=== PATIENT | female | born 1930 | race Caucasian/White ===

== ENCOUNTER 2017-11-06 07:42 | Inpatient (IN) | payer MEDICARE ==
[~2017-11-06] VITALS: Ht 165.1 cm; Wt 50.0 kg
--- NOTE | 2017-11-06 07:46 | NUR ---
PATY FROM HOME DT [facility]. PER REPORT PATIENT WAS FOUND ON THE GROUND BY HER NEIGHBOR THIS MORNING. PATIENT LIVES ALONE. PATIENT IS C/O LEFT SHOULDER, BACK AND NECK PAIN. NO KO REPORTED. BS IN FIELD 165. PATIENT IS AWAKE AND ALERT, NOT IN DISTRESS. SKIN IS WARM TO TOUCH AND NON DIAPHORETIC. PATIENT IS AFEBRILE. VSS. AWAITING FOR MD EVALUATION.
[2017-11-06] MEDS ORDERED: IV NS 0.9% 500 ML BAG IV ONE (08:00)
--- NOTE | 2017-11-06 08:05 | NUR ---
NEW IV STARTED ON LFA, 20G. BLOOD DRAWN AND SENT TO LAB.
--- NOTE | 2017-11-06 08:11 | NUR ---
CAD SPECIALIST AT BEDSIDE.
--- NOTE | 2017-11-06 08:17 | NUR ---
CUSTOMS ENTRY WRITER AT BEDSIDE.
[2017-11-06 08:18] LABS: BASOPHILS # (AUTO) 0.1 /CMM (0.0-0.2); BASOPHILS % (AUTO) 0.4 % (0.0-2.0); HEMATOCRIT 38 % (33-45); HEMOGLOBIN 12.2 g/dL (11.5-14.8); LYMPHOCYTES # (AUTO) 0.9 /CMM (0.8-4.8); LYMPHOCYTES % (AUTO) 4.7 % (20.0-44.0); MEAN CORPUSCULAR HEMOGLOBIN 28 PG (26.0-33.0); MEAN CORPUSCULAR HGB CONC 32 g/dl (31.0-36.0); MEAN CORPUSCULAR VOLUME 87 fL (82-100); MONOCYTES % (AUTO) 5.1 % (2.0-12.0); NEUTROPHILS # (AUTO) 17.5 /CMM (1.8-8.9); NEUTROPHILS % (AUTO) 89.8 % (43.0-81.0); PLATELET COUNT (AUTO) 234 /CMM (150-450); RDW COEFFICIENT OF VARIATION 15.6 (11.5-15.0); RED BLOOD CELL COUNT(AUTO) 4.42 MIL/uL (4.0-5.2); WHITE BLOOD COUNT (AUTO) 19.5 K/uL (4.3-11.0)
[2017-11-06 08:19] LABS: CALCIUM, SERUM 8.9 mg/dL (8.5-10.1); CARBON DIOXIDE 19 mmol/L (21-32); CHLORIDE 102 mmol/L (98-107); CREATININE 1.8 mg/dL (0.6-1.3); GLUCOSE 184 mg/dL (74-106); POTASSIUM 3.7 mmol/L (3.5-5.1); SODIUM SERUM 133 mmol/L (136-145); UREA NITROGEN, BLOOD 46 mg/dL (7-18)
[2017-11-06 08:24] LABS: ALANINE AMINOTRANSFERASE 17 U/L (12-78); ALBUMIN 2.4 g/dL (3.4-5.0); ALKALINE PHOSPHATASE 98 U/L (46-116); ASPARTATE AMINOTRANSFERASE 19 U/L (15-37); BILIRUBIN,DIRECT 0.2 mg/dL (0.0-0.2); BILIRUBIN,TOTAL 0.5 mg/dL (0.2-1.0); TOTAL PROTEIN, SERUM 7.1 g/dL (6.4-8.2)
[2017-11-06 08:25] LABS: INR 1.12 (0.87-1.13)
[2017-11-06 08:27] LABS: TROPONIN I < 0.017 ng/mL (0.00-0.056)
[2017-11-06] MEDS ORDERED: IV NS 0.9% 1,000 ML BAG IV ONE (08:30)
[2017-11-06] MEDS ORDERED: LEVOFLOXACIN 750 MG /D5W 150ML 150 ML IV ONE ×2 (08:30→08:33)
--- NOTE | 2017-11-06 08:31 | NUR ---
PATIENT IS BACK FROM [place]
--- NOTE | 2017-11-06 08:47 | NUR ---
BLOOD CULTURE COLLECTED AND SENT TO LAB. AT [facility] STARTED
[2017-11-06] MEDS ORDERED: ATOR20TA PO (08:50)
[2017-11-06] MEDS ORDERED: METF500T6 PO (08:50)
[2017-11-06] MEDS ORDERED: SITA50TA PO (08:50)
[2017-11-06] MEDS ORDERED: APIX2.5T PO (08:50)
[2017-11-06] MEDS ORDERED: ALLO100T PO (08:50)
--- NOTE | 2017-11-06 09:10 | NUR ---
CAPO OROPEZA FOR ADMISSION
--- NOTE | 2017-11-06 09:15 | NUR ---
PAGED DR. THORNE FO DOC TO DOC
--- NOTE | 2017-11-06 10:30 | NUR ---
PATIENT TRANSPORTED TO TELE. S
[2017-11-06] MEDS ORDERED: MAG HYDROX/AL HYDROX/SIMETH 30 ML UDC PO PRN (11:00)
[2017-11-06] MEDS ORDERED: HYDROCODONE/APAP 5/325MG 1 EACH TABLET PO PRN (11:00)
[2017-11-06] MEDS ORDERED: MAGNESIUM HYDROXIDE 30 ML UDC PO PRN (11:00)
[2017-11-06] MEDS ORDERED: TEMAZEPAM 15 MG CAPSULE PO PRN (11:00)
[2017-11-06 11:30] VITALS: BP 127/66
[2017-11-06] MEDS ORDERED: DEXTROSE 50%-WATER 50 ML DISP.SYRIN IV PRN (11:30)
[2017-11-06] MEDS: BLOOD SUGAR DIAGNOSTIC 1 EACH STRIP IN SCH ×3 (11:56→21:45)
[2017-11-06 12:00] VITALS: BP 127/66
[2017-11-06] MEDS ORDERED: LEVOFLOXACIN 250 MG /D5W 50 ML 250 MG in PREMIX 1 EA IV SCH (12:00)
--- NOTE | 2017-11-06 12:00 | NUR ---
MORTGAGE ADVISOR INITIAL NOTES RECEIVED PATIENT FROM ER VIA MARGARET, REPORT GIVEN FROM BILINGUAL KINDERGARTEN TEACHER ZOILA, PATIENT IS AOX3, WEAKNESS AND PAIN IN L SHOULDER NOTED, WOUND PICTURES TAKEN AND PLACED IN CHART, BELONGINGS LIST CHECKED, ON ROOM AIR NO DISTRESS NOTED, WEARS GLASSES, FROM HOME USUALLY AMBULATORY WITH WALKER, IN DIAPER, IV L FA 20G CLEAN AND PATENT, HAD FALL 3 DAYS AGO, SACRAL WOUND POSSIBLY FROM FALL. ALL QUESTIONS ANSWERED, ALL NEEDS ADDRESSED, AWAITING ADMITTING ORDERS.
[2017-11-06] MEDS: IV NS 0.9% 1,000 ML IV PRN ×2 (12:05→21:55)
[2017-11-06] MEDS ORDERED: Z GUARD REMEDY 2 OZ OINT TP PRN (14:30)
[2017-11-06 16:00] VITALS: BP 115/52
[2017-11-06 16:01] VITALS: BP 115/52
[2017-11-06 16:51] LABS: APPEARANCE,URINE SL CLOUDY (CLEAR); BILIRUBIN,URINE NEGATIVE (NEGATIVE); BLOOD, URINE 3+ Ery/uL (NEGATIVE); COLOR,URINE YELLOW (YELLOW); KETONES,URINE NEGATIVE (NEGATIVE); LEUKOCYTE ESTERASE ,URINE 3+ (NEGATIVE); NITRITE, URINE POSITIVE (NEGATIVE); PROTEIN,URINE 1+ mg/dl (NEGATIVE); UGLUCOSE NEGATIVE (NEGATIVE); UROBILINOGEN,URINE 0.2 EU/dL (0.2)
[2017-11-06 16:58] LABS: BACTERIA,URINE Many /HPF (None Seen); SQUAMOUS EPITHELIAL CELL,UR Few /HPF (None Seen); WBC,URINE 51-80 /HPF (0-3)
[2017-11-06] MEDS ORDERED: APIXABAN 2.5 MG TABLET PO ONE (17:00)
--- NOTE | 2017-11-06 18:52 | NUR ---
METAL FLOORING INSTALLER NOTES PATIENT RESTING IN BED, NO SIGNS OF DISTRESS, ALL NEEDS MET, FAMILY AT BEDSIDE.
[2017-11-06 20:00] VITALS: BP 116/58
[2017-11-06] MEDS ORDERED: ATORVASTATIN 10 MG TABLET PO SCH (22:00)
--- NOTE | 2017-11-06 22:00 | NUR ---
RN NOTES: PATIENT REFUSING TO HAVE BLOOD SUGAR CHECKED. PATIENT STATES "I DONT CHECK MY BLOOD SUGAR AT HOME, WHY SHOULD I DO IT HERE." ATTEMPTED TO EDUCATE PATIENT REGARDING NEED FOR BLOOD SUGAR TO BE CHECKED, PATIENT VERBALIZES UNDERSTANDING, BUT STILL STRONGLY REFUSES. NO S/S OF HYPOGLYCEMIA OR HYPERGLYCEMIA AT THIS TIME. OFFERED JUICE AND SNACK AT BEDSIDE, BUT PATIENT REFUSES. WILL CONTINUE CLOSE MONITORING
[2017-11-07] VITALS: BP 115/61
--- NOTE | 2017-11-07 00:30 | NUR ---
RN NOTES PATIENT WITH C/O SOB WITH GENERAL MALAISE. PLACED ON O2 VIA NC @ 2LPM, PATIENT STATES SHE HAS IMPROVEMENT IN BREATHING WITH O2, SPO2 WNL. WILL CONTINUE TO CLOSELY MONITOR
[2017-11-07 04:00] VITALS: BP 105/57
[2017-11-07 06:37] LABS: EOSINOPHILS % (AUTO) 0.2 % (0.0-6.0); HEMATOCRIT 32 % (33-45); HEMOGLOBIN 10.4 g/dL (11.5-14.8); LYMPHOCYTES # (AUTO) 0.7 /CMM (0.8-4.8); LYMPHOCYTES % (AUTO) 7.7 % (20.0-44.0); MEAN CORPUSCULAR HEMOGLOBIN 28 PG (26.0-33.0); MEAN CORPUSCULAR HGB CONC 33 g/dl (31.0-36.0); MEAN CORPUSCULAR VOLUME 87 fL (82-100); MONOCYTES # (AUTO) 0.7 /CMM (0.1-1.30); NEUTROPHILS # (AUTO) 8.2 /CMM (1.8-8.9); NEUTROPHILS % (AUTO) 85.1 % (43.0-81.0); PLATELET COUNT (AUTO) 198 /CMM (150-450); RDW COEFFICIENT OF VARIATION 15.9 (11.5-15.0); RED BLOOD CELL COUNT(AUTO) 3.66 MIL/uL (4.0-5.2); WHITE BLOOD COUNT (AUTO) 9.6 K/uL (4.3-11.0)
[2017-11-07 06:48] LABS: CALCIUM, SERUM 7.5 mg/dL (8.5-10.1); CARBON DIOXIDE 20 mmol/L (21-32); CHLORIDE 108 mmol/L (98-107); CREATININE 1.2 mg/dL (0.6-1.3); GLUCOSE 131 mg/dL (74-106); POTASSIUM 3.5 mmol/L (3.5-5.1); SODIUM SERUM 137 mmol/L (136-145); UREA NITROGEN, BLOOD 30 mg/dL (7-18)
[2017-11-07 06:55] LABS: CHOLESTEROL 84 mg/dL (<200); HDL CHOLESTEROL 25 mg/dL (40-60); LDL 49 mg/dL (0-99); THYROID STIMULATING HORMONE 2.691 uIU/mL (0.358-3.74); TRIGLYCERIDES 63 mg/dL (30-150)
[2017-11-07 07:00] LABS: MAGNESIUM 1.2 mg/dL (1.8-2.4)
--- NOTE | 2017-11-07 07:00 | NUR ---
RN CLOSING NOTES PATIENT RESTING COMFORTABLY IN BED. NO ACUTE CHANGES THROUGHOUT THE SHIFT. WILL ENDORSE THE PATIENT TO THE AM SHIFT NURSE FOR CONTINUITY OF CARE
--- NOTE | 2017-11-07 07:30 | NUR ---
RN NOTE: PATIENT RECEIVED ALERT AWAKE ORIENTED X 2, WITH PERIODS OF FORGETFULNESS. ON 2LPM O2 VIA NC. DENIES BREATHING DIFFICULTY NOTED. DENIES PAIN & DISCOMFORT. ON TELE MONITOR SINUS RHYTHM WITH V-PACING. IV CATH INTACT, RUNNING WITH IV FLUIDS ORDERED BY MD. WAITING FOR WOUND CONSULT. SAFETY MEASURES OBSERVED. CALL LIGHT WITHIN REACH. WILL CONTINUE TO MONITOR.
[2017-11-07 08:00] VITALS: BP 150/68
[2017-11-07] MEDS: ALLOPURINOL 100 MG TABLET PO SCH (08:09)
[2017-11-07] MEDS: IV NS 0.9% 1,000 ML IV PRN ×3 (08:09→21:01)
[2017-11-07] MEDS: BLOOD SUGAR DIAGNOSTIC 1 EACH STRIP IN SCH ×4 (08:09→22:02)
[2017-11-07] MEDS ORDERED: APIXABAN 2.5 MG TABLET PO SCH (09:00)
[2017-11-07] MEDS: Magnesium 1GM/D5W 100ML PREMIX 100 ML IV SCH ×3 (09:02→12:07)
[2017-11-07 09:33] LABS: ALBUMIN 1.7 g/dL (3.4-5.0); BILIRUBIN,DIRECT 0.1 mg/dL (0.0-0.2); BILIRUBIN,TOTAL 0.3 mg/dL (0.2-1.0); TOTAL PROTEIN, SERUM 5.7 g/dL (6.4-8.2); TROPONIN I 0.01 ng/mL (0.00-0.056)
[2017-11-07] MEDS ORDERED: MINERAL OIL/PETROLATUM,WHITE 120 GM JAR TP PRN (10:00)
[2017-11-07] MEDS ORDERED: HYDROGEL DRESSING 90 GM TUBE TP PRN (10:00)
--- NOTE | 2017-11-07 10:04 | NUR ---
WOUND CARE CONSULT: PT PRESENTS WITH UNSTAGEABLE ULCERS TO SACRUM AND BILATERAL BUTTOCKS, PRESENT ON ADMISSION. ALL WOUND CARE AND SKIN PROTECTION RECOMMENDATIONS DISCUSSED WITH NURSING STAFF. DIETARY CONSULT AND SOCIAL SERVICE CONSULTS MADE. PT TO BE PLACED ON GAUTAM ISOFLEX LOW AIRLOSS BED. RECOMMEND SURGICAL CONSULT. WILL SEE PRN. CURRENT ELLIOTT SCORE IS 17. PT IS INCONTINENT. MD IN AGREEMENT WITH PLAN OF CARE. Addendum: 11/07/17 at 1006 by DUSTIN MAHMOOD WNDNU Amended: Links added.
[2017-11-07 12:00] VITALS: BP 124/60
[2017-11-07] MEDS: HYDROGEL DRESSING 90 GM TUBE TP SCH (12:06)
[2017-11-07] MEDS: INSULIN REGULAR, HUMAN 100 UNIT/ML 3 ML VIAL SQ PRN ×2 (12:46→17:49)
[2017-11-07] MEDS: LEVOFLOXACIN 250 MG /D5W 50 ML 250 MG in PREMIX 1 EA IV SCH (13:15)
[2017-11-07 16:00] VITALS: BP 115/58
[2017-11-07 20:00] VITALS: BP 118/55
[2017-11-07] MEDS: ACETAMINOPHEN 325 MG TABLET PO PRN (21:54)
[2017-11-08] VITALS (8 sets, daily range): BP systolic 99–149; BP diastolic 50–71
[2017-11-08] MEDS: IV NS 0.9% 1,000 ML IV PRN (04:50)
[2017-11-08 06:09] LABS: EOSINOPHILS % (AUTO) 0.8 % (0.0-6.0); HEMATOCRIT 30 % (33-45); HEMOGLOBIN 9.9 g/dL (11.5-14.8); LYMPHOCYTES # (AUTO) 0.9 /CMM (0.8-4.8); LYMPHOCYTES % (AUTO) 11.3 % (20.0-44.0); MEAN CORPUSCULAR HEMOGLOBIN 28 PG (26.0-33.0); MEAN CORPUSCULAR HGB CONC 33 g/dl (31.0-36.0); MEAN CORPUSCULAR VOLUME 86 fL (82-100); MONOCYTES # (AUTO) 0.7 /CMM (0.1-1.30); MONOCYTES % (AUTO) 8.3 % (2.0-12.0); NEUTROPHILS # (AUTO) 6.4 /CMM (1.8-8.9); NEUTROPHILS % (AUTO) 79.6 % (43.0-81.0); PLATELET COUNT (AUTO) 192 /CMM (150-450); RDW COEFFICIENT OF VARIATION 15.4 (11.5-15.0); RED BLOOD CELL COUNT(AUTO) 3.51 MIL/uL (4.0-5.2); WHITE BLOOD COUNT (AUTO) 8.1 K/uL (4.3-11.0)
[2017-11-08 06:33] LABS: ALANINE AMINOTRANSFERASE 21 U/L (12-78); ALBUMIN 1.5 g/dL (3.4-5.0); ALKALINE PHOSPHATASE 59 U/L (46-116); ASPARTATE AMINOTRANSFERASE 23 U/L (15-37); BILIRUBIN,TOTAL 0.2 mg/dL (0.2-1.0); CALCIUM, SERUM 6.9 mg/dL (8.5-10.1); CARBON DIOXIDE 19 mmol/L (21-32); CHLORIDE 108 mmol/L (98-107); GLUCOSE 123 mg/dL (74-106); MAGNESIUM 1.6 mg/dL (1.8-2.4); PHOSPHORUS 2.4 mg/dL (2.5-4.9); SODIUM SERUM 138 mmol/L (136-145); TOTAL PROTEIN, SERUM 5.1 g/dL (6.4-8.2); UREA NITROGEN, BLOOD 20 mg/dL (7-18)
--- NOTE | 2017-11-08 07:35 | NUR ---
FOUNDRY SUPERINTENDANT OPENING NOTE PATIENT RECEIVED ALERT AWAKE ORIENTED X 2, WITH PERIODS OF FORGETFULNESS. ON 2LPM O2 VIA NC. NO BREATHING DIFFICULTY NOTED. DENIES PAIN & DISCOMFORT. ON TELE MONITOR SINUS RHYTHM 70. IV LFA#20 INTACT AND PATENT WITH IVF 150ML/HR.HAS MARIE CATH DRAINING CLEAR YELLOW URINE. SAFETY MEASURES MAINTAINED.BED IS LOCKED AND IN LOW POSITION. CALL LIGHT WITHIN REACH. WILL CONTINUE TO MONITOR.
[2017-11-08] MEDS: BLOOD SUGAR DIAGNOSTIC 1 EACH STRIP IN SCH ×4 (08:09→23:24)
[2017-11-08] MEDS: ALLOPURINOL 100 MG TABLET PO SCH (08:14)
[2017-11-08] MEDS: HYDROGEL DRESSING 90 GM TUBE TP SCH (08:18)
[2017-11-08] MEDS: NEUTRA PHOS 1 POWD.PACKET PO SCH ×2 (10:01→17:11)
[2017-11-08] MEDS: Magnesium 1GM/D5W 100ML PREMIX 100 ML IV SCH ×2 (10:01→11:51)
[2017-11-08] MEDS: POTASSIUM CHLORIDE 20 MEQ TAB.PRT.SR PO SCH ×3 (10:01→13:03)
[2017-11-08] MEDS: ENOXAPARIN SODIUM 40 MG/0.4 ML DISP.SYRIN SQ SCH (11:52)
--- NOTE | 2017-11-08 12:54 | NUR ---
Social service consult requested by Dr. Oliveros for stage 4 pressure ulcer. Pt. resides at home. Pt. is a 87 year old female who was admitted to [facility] for ground level fall at her home three days ago prior to admission and for pressure ulcers. Pt. is alert and oriented x 3. Pt. is forgetful at times. Pt. lives alone and has friends who check up on the pt. Pt's friends are Asaf Wilkes and Mykel . Pt. resides alone and will need assisted placement upon discharge. Per case resource manager Yajaira pt. has been accepted to [facility] located at [address] [place] [address] in [place]. [place] . Pt. has agreed to go to SNF as well for rehabilitation. No other social service needs are required at this time. SW is available, if needed.
[2017-11-08] MEDS: LEVOFLOXACIN 250 MG /D5W 50 ML 250 MG in PREMIX 1 EA IV SCH (13:03)
[2017-11-08] MEDS: INSULIN REGULAR, HUMAN 100 UNIT/ML 3 ML VIAL SQ PRN ×3 (13:06→23:36)
[2017-11-08] MEDS: ENSURE ENLIVE CHOC 237 ML CAN PO SCH ×2 (14:06→17:11)
[2017-11-08] MEDS ORDERED: LIDOCAINE 1%-EPI 1:100,000 20 ML VIAL TP ONE (15:00)
--- NOTE | 2017-11-08 15:00 | NUR ---
COUNTER SALES PERSON NOTES SEEN BY DR KEITA MADE AWARE ABOUT THE ALL ABNORMAL LABS ,SHE WANT TO KNOW ABOUT THE PT YESTERDAY.CALL MADE TO REHAB .TOLD THAT SHE NEED ASSISTANCE WITH BED MOBILITY AND TRANSFER AND UNABLE TO WALK YESTERDAY. MADE AWARE.WILL FOLLOW UP WITH PT TODAY.
[2017-11-08] MEDS ORDERED: SILVER NITRATE APPLICATOR 1 EA BOX TP ONE (15:30)
[2017-11-08] MEDS: SOD FERRIC GLUC 125 MG in IV NS 0.9% 100 ML IV SCH (15:48)
--- NOTE | 2017-11-08 19:00 | NUR ---
JAVA GRAILS DEVELOPER SHIFT END NOTE PATIENT ALERT AWAKE ORIENTED X 2, WITH PERIODS OF FORGETFULNESS. ON 2LPM O2 VIA NC. NO BREATHING DIFFICULTY NOTED. DENIES PAIN & DISCOMFORT. ON TELE MONITOR SINUS RHYTHM 76. IV LFA#20 INTACT AND PATENT WITH IVF 50ML/HR.HAS MARIE CATH DRAINING CLEAR YELLOW URINE. SAFETY MEASURES MAINTAINED.BED IS LOCKED AND IN LOW POSITION. CALL LIGHT WITHIN REACH.NEED TO COLLECT STOOL FOR OB.FIRST LEVEL MATTRESS ORDERED ,SPOKE TO [facility] [employer] THEY TOLD THAT ORDER MAY .PLACED NEW ORDER.ENDORSED TO PM NURSE FOR TIMBO.
[2017-11-09] VITALS (7 sets, daily range): BP systolic 100–130; BP diastolic 53–70
[2017-11-09] MEDS: IV NS 0.9% 1,000 ML IV PRN (01:02)
[2017-11-09 06:53] LABS: ALANINE AMINOTRANSFERASE 20 U/L (12-78); ALBUMIN 1.6 g/dL (3.4-5.0); ALKALINE PHOSPHATASE 63 U/L (46-116); ASPARTATE AMINOTRANSFERASE 19 U/L (15-37); BILIRUBIN,TOTAL 0.2 mg/dL (0.2-1.0); CALCIUM, SERUM 7.3 mg/dL (8.5-10.1); CARBON DIOXIDE 19 mmol/L (21-32); CHLORIDE 109 mmol/L (98-107); GLUCOSE 193 mg/dL (74-106); MAGNESIUM 1.5 mg/dL (1.8-2.4); PHOSPHORUS 2.3 mg/dL (2.5-4.9); POTASSIUM 4.1 mmol/L (3.5-5.1); SODIUM SERUM 139 mmol/L (136-145); TOTAL PROTEIN, SERUM 5.3 g/dL (6.4-8.2); UREA NITROGEN, BLOOD 21 mg/dL (7-18)
--- NOTE | 2017-11-09 06:53 | NUR ---
RN NOTE NO ACUTE CHANGES ON MY SHIFT, PATIENT RESTED WELL AT NIGHT, NO DISTRESS NOTED, ALL SAFETY MEASURES TAKEN, WILL ENDORSE TO AM SHIFT FOR TIMBO
[2017-11-09] MEDS: BLOOD SUGAR DIAGNOSTIC 1 EACH STRIP IN SCH ×4 (07:55→22:09)
--- NOTE | 2017-11-09 07:55 | NUR ---
RN NOTE RECEIVED PATIENT IN BED AWAKE WATCHING T.V. ALERT AND ORIENTED X 3, SHE IS ABLE TO VERBALIZE NEEDS AND MAKE THINGS KNOWN. BREATHING EVEN AND UNLABORED WITH NO DISTRESS NOTED. ON CONTINUOUS O2 2L VIA NC. LEFT FA INTACT AND PATEN. NO S/SX OF INFILTRATION OR INFECTION. F/C INTACT AND PATENT WITH ADEQUATE FLOW OF URINE. ALL SAFETY MEASURES DONE. BED LOW AND LOCKED POSITION. PLACED CALL LIGHT WITHIN REACH. WILL CONTINUE TO MONITOR
[2017-11-09] MEDS: INSULIN REGULAR, HUMAN 100 UNIT/ML 3 ML VIAL SQ PRN ×4 (07:57→22:11)
[2017-11-09 08:12] LABS: BASOPHILS % (AUTO) 0.1 % (0.0-2.0); EOSINOPHILS % (AUTO) 0.9 % (0.0-6.0); HEMATOCRIT 32 % (33-45); HEMOGLOBIN 10.9 g/dL (11.5-14.8); LYMPHOCYTES # (AUTO) 1.2 /CMM (0.8-4.8); LYMPHOCYTES % (AUTO) 13.4 % (20.0-44.0); MEAN CORPUSCULAR HEMOGLOBIN 29 PG (26.0-33.0); MEAN CORPUSCULAR HGB CONC 34 g/dl (31.0-36.0); MEAN CORPUSCULAR VOLUME 85 fL (82-100); MONOCYTES # (AUTO) 0.8 /CMM (0.1-1.30); MONOCYTES % (AUTO) 8.9 % (2.0-12.0); NEUTROPHILS % (AUTO) 76.7 % (43.0-81.0); PLATELET COUNT (AUTO) 187 /CMM (150-450); RED BLOOD CELL COUNT(AUTO) 3.76 MIL/uL (4.0-5.2); WHITE BLOOD COUNT (AUTO) 9.1 K/uL (4.3-11.0)
[2017-11-09 08:36] LABS: OCCULT BLOOD STOOL NEGATIVE (NEGATIVE)
[2017-11-09] MEDS: ALLOPURINOL 100 MG TABLET PO SCH (08:45)
[2017-11-09] MEDS: ENOXAPARIN SODIUM 40 MG/0.4 ML DISP.SYRIN SQ SCH (08:50)
[2017-11-09] MEDS: HYDROGEL DRESSING 90 GM TUBE TP SCH (08:52)
[2017-11-09] MEDS: ENSURE ENLIVE CHOC 237 ML CAN PO SCH ×3 (08:52→16:54)
[2017-11-09] MEDS: Magnesium 1GM/D5W 100ML PREMIX 100 ML IV SCH ×2 (10:08→11:11)
[2017-11-09] MEDS ORDERED: FERR325T28 PO (10:19)
[2017-11-09] MEDS ORDERED: LACT-54 PO (10:19)
[2017-11-09] MEDS ORDERED: MAGN400T6 PO (10:19)
[2017-11-09] MEDS ORDERED: MULT1TAB73 PO (10:19)
[2017-11-09] MEDS ORDERED: ASCO500C16 PO (10:19)
[2017-11-09] MEDS ORDERED: Hydrogel Dressing TP (10:19)
[2017-11-09] MEDS ORDERED: FOLI1TAB16 PO (10:19)
[2017-11-09] MEDS: LEVOFLOXACIN 250 MG /D5W 50 ML 250 MG in PREMIX 1 EA IV SCH (12:20)
[2017-11-09] MEDS ORDERED: NEUTRA PHOS 1 POWD.PACKET PO ONE (13:00)
[2017-11-09] MEDS: SOD FERRIC GLUC 125 MG in IV NS 0.9% 100 ML IV SCH (15:37)
--- NOTE | 2017-11-09 18:00 | NUR ---
RN NOTE AMBULANCE WAS HER TO TRANSFER PATIENT TO [facility]. PATIENT AND NIECE DECIDED NOT TO HAVE PATIENT TRANSFERRED DUE TO PATIENT NOT RECEIVING WOUND DEBRIDEMENT. HEAD OF ENGLISH SAHRA CHILDS STATED IN HER NOTES THAT PATIENT REFUSED DEBRIDEMENT. NIECE AND PATIENT WOULD LIKE WOUND DEBRIDEMENT TO BE DONE TOMORROW AND DISCHARGED TO FACILITY. REPLAYED MESSAGE TO SENIOR OPERATIONS ANALYST JOSEFA REGARDING SITUATION AND MADE AWARE. RELAYED MESSAGE TO MD DR KEITA. CHARGE NURSE WAS NOTIFIED. WILL ENDORSE TO NEXT SHIFT TO ENDORSE TO AM SHIFT TOMORROW.
--- NOTE | 2017-11-09 21:50 | NUR ---
RN NOTES RECEIVED PATIENT AWAKE IN BED WITH FAMILY AT BEDSIDE. BREATHING EVEN AND UNLABORED. O2 AT 2LPM VIA NASAL CANNULA TOLERATING WELL. ALERT AND ORIENTED. ABLE TO VERBALIZE NEEDS. NO COMPLAINT OF PAIN OF THIS TIME. TRANSFERRED TO 313-1 ROBBIN HUERTA IN STABLE CONDITION. ENDORSEMENT GIVEN TO ROBBIN HUERTA RN.
--- NOTE | 2017-11-09 21:57 | NUR ---
MS RN OPENING NOTES RECEIVE REPORT FROM COLETTE HAT LINING PASTER TO 113-2 RECEIVE AT 2150 ALERT AWAKE ORIENTED X 2-3, WITH PERIODS OF FORGETFULNESS. ON 2LPM O2 VIA NC 98%.DENIES PAIN & DISCOMFORT. STABLE, SAFETY MEASURES IMPLEMENTED.BED IS LOCKED AND IN LOW POSITION. CALL LIGHT WITHIN REACH. WILL MONITOR.
[2017-11-10] MEDS: BLOOD SUGAR DIAGNOSTIC 1 EACH STRIP IN SCH ×4 (05:32→22:46)
[2017-11-10] MEDS: INSULIN REGULAR, HUMAN 100 UNIT/ML 3 ML VIAL SQ PRN ×4 (05:37→22:49)
--- NOTE | 2017-11-10 06:11 | NUR ---
MS RN CLOSING NOTES PT COMFORTABLY ASLEEP AND EASILY AWAKEN, ASSISTED REPOSITION EVERY 2 HOURS, RESPIRATION EVEN AND UNLABORED. KEPT CLEAN AND DRY AND COMFORTABLE, ALL NURSING CARE RENDERED. NEEDS ATTENDED AND ANTICIPATED, GOOD SKIN CARE PROVIDED. ON LOW BED AT ALL TIMES TO ENSURE SAFETY. SAFE HAZARD FREE ENVIRONMENT PROVIDED. CALL LIGHT WITHIN EASY TO REACH. WILL ENDORSE NEXT SHIFT CONTINUITY OF CARE.
--- NOTE | 2017-11-10 07:15 | NUR ---
MS RN OPENING NOTES RECEIVED PT LAYING IN BED WITH HOB ELEVATED, RESTING COMFORTABLY. PT IS EASILY AROUSABLE. RESPIRATIONS ARE EVEN AND UNLABORED, NOT IN ANY DISTRESS NOTED. PT DENIES ANY PAIN AT THIS TIME, NO C/O SOB, N/V. IV INTACT, NO INFILTRATION NOTED. DRESSING KEPT CLEAN AND DRY. SAFETY MEASURES ARE IN PLACE. WILL REPOSITION PER PROTOCOL. INSTRUCTED PT TO USE CALL LIGHT WHEN ASSISTANCE IS NEEDED, CALL LIGHT IS LEFT WITHIN REACH. WILL CONTINUE TO MONITOR THROUGHOUT SHIFT FOR CONTINUITY OF CARE.
[2017-11-10 07:25] LABS: CARBON DIOXIDE 23 mmol/L (21-32); CHLORIDE 109 mmol/L (98-107); CREATININE 0.9 mg/dL (0.6-1.3); GLUCOSE 131 mg/dL (74-106); PHOSPHORUS 2.5 mg/dL (2.5-4.9); POTASSIUM 3.9 mmol/L (3.5-5.1); SODIUM SERUM 141 mmol/L (136-145); UREA NITROGEN, BLOOD 16 mg/dL (7-18)
[2017-11-10 08:00] VITALS: BP 127/69
[2017-11-10] MEDS: HYDROGEL DRESSING 90 GM TUBE TP SCH (08:27)
[2017-11-10] MEDS: LEVOFLOXACIN (250MG) 250 MG TABLET PO SCH (08:27)
[2017-11-10] MEDS: ALLOPURINOL 100 MG TABLET PO SCH (08:27)
[2017-11-10] MEDS: ENOXAPARIN SODIUM 40 MG/0.4 ML DISP.SYRIN SQ SCH (08:28)
[2017-11-10] MEDS: ENSURE ENLIVE CHOC 237 ML CAN PO SCH ×3 (09:18→17:45)
--- NOTE | 2017-11-10 10:47 | NUR ---
MS RN NOTES RECEIVED ORDERS PER ORCHARD SPRAYER PINA FOR PROCEDURE CONSENT OF EXCISIONAL DEBRIDEMENT OF BILATERAL BUTTOCKS WOUND. ORDERS READ BACK AND VERIFIED. NOTED AND CARRIED OUT.
[2017-11-10] MEDS ORDERED: LIDOCAINE 2%-EPI 1:100,000 30 ML VIAL TP ONE (11:30)
[2017-11-10] MEDS: SOD FERRIC GLUC 125 MG in IV NS 0.9% 100 ML IV SCH (14:28)
[2017-11-10 16:00] VITALS: BP 130/70
--- NOTE | 2017-11-10 18:35 | NUR ---
MS RN CLOSING NOTES ALL DUE MEDS GIVEN, NEEDS MET AND ANTICIPATED. PT REMAINS A/O X2-3, AFEBRILE. RESPIRATIONS ARE EVEN AND UNLABORED, NOT IN ANY ACUTE DISTRESS NOTED. PT DENIES ANY PAIN, SOB, N/V. CURRENTLY ON O2 @2L/MIN VIA NC, SATURATING AT 94%. IV SITE INTACT, FLUSHED AND NO INFILTRATION NOTED. DRESSING KEPT CLEAN AND DRY. MARIE CATH DRAINING CLEAR/YELLOW URINE, TUBING FREE OF KINKS. SAFETY MEASURES ARE IN PLACE. PT REPOSITIONED PER PROTOCOL. REMINDED PT TO USE CALL LIGHT WHEN ASSISTANCE IS NEEDED, CALL LIGHT IS LEFT WITHIN REACH. WILL ENDORSE TO NEXT SHIFT FOR CONTINUITY OF CARE.
--- NOTE | 2017-11-10 19:10 | NUR ---
MSRN DEBRIDEMENT AT BEDSIDE BY DELIVERY TRUCK DRIVER, ASSISTED BY OUTGOING STAFF. BILATERAL BUTTOCKS OFF MATTRESS, BACK SUPPORTED BY PILLOWS. KEPT COMFORTABLE. TO CONTINUE
[2017-11-10 20:00] VITALS: BP 128/57
--- NOTE | 2017-11-10 21:00 | NUR ---
MSRN HAD BM SOFT FORMED STOOLS IN MOD AMOUNT. PERICARE, WOUND SITE NOT CONTAMINATED. REPOSITINED PER PATIENT COMFORT. CONTINUED.
[2017-11-10] MEDS: HYDROCODONE/APAP 10/325MG 1 EA TABLET PO PRN (22:47)
--- NOTE | 2017-11-10 22:49 | NUR ---
MSRN BS WAS 138, COVERED WITH 2 UNITS SQ OF REGULAR INSULIN. SNACKS PROVIDED, ASSISTED. VERBALIZES KEVON BUTTOCK PAIN, 1 TAB OF NORCO 10/325MG PO ADMINISTERED.
--- NOTE | 2017-11-11 02:41 | NUR ---
MSRN SLEEPING APPEARS COMFORTABLE
[2017-11-11] MEDS: BLOOD SUGAR DIAGNOSTIC 1 EACH STRIP IN SCH ×4 (06:19→22:21)
--- NOTE | 2017-11-11 06:25 | NUR ---
MSRN BS WAS 124, NO COVERAGE.
[2017-11-11 06:49] LABS: BASOPHILS % (AUTO) 0.1 % (0.0-2.0); EOSINOPHILS % (AUTO) 1.6 % (0.0-6.0); HEMATOCRIT 33 % (33-45); HEMOGLOBIN 11.1 g/dL (11.5-14.8); LYMPHOCYTES # (AUTO) 1.6 /CMM (0.8-4.8); LYMPHOCYTES % (AUTO) 17.1 % (20.0-44.0); MEAN CORPUSCULAR HEMOGLOBIN 29 PG (26.0-33.0); MEAN CORPUSCULAR HGB CONC 34 g/dl (31.0-36.0); MEAN CORPUSCULAR VOLUME 84 fL (82-100); MONOCYTES # (AUTO) 0.7 /CMM (0.1-1.30); MONOCYTES % (AUTO) 7.1 % (2.0-12.0); NEUTROPHILS # (AUTO) 7.1 /CMM (1.8-8.9); NEUTROPHILS % (AUTO) 74.1 % (43.0-81.0); PLATELET COUNT (AUTO) 178 /CMM (150-450); RDW COEFFICIENT OF VARIATION 14.6 (11.5-15.0); WHITE BLOOD COUNT (AUTO) 9.6 K/uL (4.3-11.0)
[2017-11-11 07:12] LABS: CALCIUM, SERUM 8.5 mg/dL (8.5-10.1); CARBON DIOXIDE 26 mmol/L (21-32); CHLORIDE 107 mmol/L (98-107); CREATININE 0.9 mg/dL (0.6-1.3); GLUCOSE 124 mg/dL (74-106); MAGNESIUM 1.4 mg/dL (1.8-2.4); SODIUM SERUM 140 mmol/L (136-145); UREA NITROGEN, BLOOD 19 mg/dL (7-18)
--- NOTE | 2017-11-11 07:26 | NUR ---
MS RN OPENING NOTES RECEIVED PT LAYING IN BED WITH HOB ELEVATED, SLEEPING COMFORTABLY. PT IS EASILY AROUSABLE. RESPIRATIONS ARE EVEN AND UNLABORED, NOT IN ANY DISTRESS NOTED. PT DENIES ANY PAIN AT THIS TIME, NO C/O SOB, N/V. IV INTACT, NO INFILTRATION NOTED. DRESSING KEPT CLEAN AND DRY. SAFETY MEASURES ARE IN PLACE. WILL REPOSITION PER PROTOCOL. INSTRUCTED PT TO USE CALL LIGHT WHEN ASSISTANCE IS NEEDED, CALL LIGHT IS LEFT WITHIN REACH. WILL CONTINUE TO MONITOR THROUGHOUT SHIFT FOR CONTINUITY OF CARE.
[2017-11-11 08:00] VITALS: BP 131/68
[2017-11-11] MEDS: LEVOFLOXACIN (250MG) 250 MG TABLET PO SCH (08:21)
[2017-11-11] MEDS: ALLOPURINOL 100 MG TABLET PO SCH (08:21)
[2017-11-11] MEDS: ENSURE ENLIVE CHOC 237 ML CAN PO SCH ×3 (08:21→16:46)
[2017-11-11] MEDS: ACETAMINOPHEN 325 MG TABLET PO PRN (08:21)
[2017-11-11] MEDS: HYDROGEL DRESSING 90 GM TUBE TP SCH (08:22)
[2017-11-11] MEDS: ENOXAPARIN SODIUM 40 MG/0.4 ML DISP.SYRIN SQ SCH (08:30)
[2017-11-11] MEDS: Magnesium 1GM/D5W 100ML PREMIX 100 ML IV SCH ×2 (09:47→10:21)
[2017-11-11] MEDS: INSULIN REGULAR, HUMAN 100 UNIT/ML 3 ML VIAL SQ PRN ×3 (11:56→21:21)
--- NOTE | 2017-11-11 14:02 | NUR ---
MS RN NOTES CALLED PHARMACY RE: NEW ORDER FOR MERREM, STATED THEY WILL SEND SOMEONE UP TO DELIVER.
[2017-11-11] MEDS: SOD FERRIC GLUC 125 MG in IV NS 0.9% 100 ML IV SCH (15:39)
--- NOTE | 2017-11-11 15:39 | NUR ---
MS RN NOTES CALLED PHARMACY TO REMIND THEM RE: SHERI SULLIVAN. PER ANNABEL, "WE'RE WORKING ON IT."
[2017-11-11 16:00] VITALS: BP 125/50
--- NOTE | 2017-11-11 18:28 | NUR ---
MS RN CLOSING NOTES ALL DUE MEDS GIVEN, NEEDS MET AND ANTICIPATED. PT REMAINS A/O X2-3, AFEBRILE. RESPIRATIONS ARE EVEN AND UNLABORED, NOT IN ANY ACUTE DISTRESS NOTED. PT DENIES ANY PAIN, SOB, N/V. CURRENTLY ON O2 @2L/MIN VIA NC, SATURATING AT 94%. NEW PERIPHERAL IV INSERTED TO LEFT WRIST G22. DRESSING KEPT CLEAN AND DRY. MARIE CATH DRAINING CLEAR/YELLOW URINE, TUBING FREE OF KINKS. SAFETY MEASURES ARE IN PLACE. PT REPOSITIONED PER PROTOCOL. REMINDED PT TO USE CALL LIGHT WHEN ASSISTANCE IS NEEDED, CALL LIGHT IS LEFT WITHIN REACH. WILL ENDORSE TO NEXT SHIFT FOR CONTINUITY OF CARE.
--- NOTE | 2017-11-11 19:45 | NUR ---
RN NOTES:' RECEIVED REPORT FROM HAYLEY EAST. PT IN BED, AWAKE, A/O X3 ON 2L NC RESPIRATION EVEN AND UNLABORED. PT HAS IV ACCESS ON RIGHT WRIST, PATENT AND FLUSHING WELL, ON HL. PT S/P WOUND DEBRIDEMENT ON 11/10/17. DISCUSSED PLAN OF CARE TO THE PT. SAFETY PRECAUTIONS FOR FALL INITIATED, CALL LIGHT IN REACH, WILL CONTINUE MONITORING PT. Addendum: 11/11/17 at 2140 by NICOLE BESS RN CORRECTION OF ENTRY: PT'S IV ACCESS ON LEFT WRIST G 22, PATENT AND FLUSHING WELL, ON HL. RN INITIAL NOTES: RECEIVED REPORT FROM HAYLEY EAST. PT IN BED, AWAKE, A/O X3 ON 2L NC RESPIRATION EVEN AND UNLABORED. PT HAS IV ACCESS ON LEFT WRIST, PATENT AND FLUSHING WELL, ON HL. PT S/P WOUND DEBRIDEMENT ON 11/10/17. DISCUSSED PLAN OF CARE TO THE PT. SAFETY PRECAUTIONS FOR FALL INITIATED, CALL LIGHT IN REACH, WILL CONTINUE MONITORING PT.
--- NOTE | 2017-11-11 19:55 | NUR ---
RN NOTES: NOTED LEFT CW PACEMAKER, PT HAD RIGHT MASTECTOMY, POSTED NOTE NOT TO TAKE BP/ BLOOD DRAW OR IV ON RIGHT ARM
[2017-11-11 20:00] VITALS: BP 152/69
[2017-11-11 20:15] VITALS: BP 114/70
[2017-11-11] MEDS: HYDROCODONE/APAP 10/325MG 1 EA TABLET PO PRN (20:29)
--- NOTE | 2017-11-11 20:29 | NUR ---
PRN NORCO 10/325: PT CRYING, COMPLAINING OF ABDOMINAL PAIN AND CRAMPING, STATED SHE'S BEEN MOVING HER BOWELS, AND HER WOUND ON SACRAL IS ALSO PAINFUL, STATED ITS 12/08, REQUESTING FOR PAIN MEDICATION, PRN NORCO 10/325 MG TAB PO ADMINISTERED TO THE PT AT THIS TIME, EDUCATE PT REGARDING MEDICATION SIDE EFFECT, WILL CONTINUE TO MONITOR AND REASSESS
--- NOTE | 2017-11-11 21:00 | NUR ---
RN NOTES: ASSISTED NAILHEAD PUNCHER IN CHANGING PT, PT HAD BM, ALSO CHANGED PT'S WOUND DRESSING. WOUND CARE DONE ORDERED.
--- NOTE | 2017-11-11 21:22 | NUR ---
ACCU CHECK 135: BS 135, 2UNITS OF INSULIN GIVEN PER SLIDING SCALE, WILL MONITOR FOR ANY S/S OF HYPOGLYCEMIA
[2017-11-11 22:00] VITALS: BP 135/70
--- NOTE | 2017-11-12 02:43 | NUR ---
RN NOTES: PT SLEEPING, APPEARS CALM AND COMFORTABLE, NO FACIAL GRIMACE NOTED, REMAINS ON 3L NC
[2017-11-12] MEDS: INSULIN REGULAR, HUMAN 100 UNIT/ML 3 ML VIAL SQ PRN ×4 (05:52→21:15)
[2017-11-12] MEDS: BLOOD SUGAR DIAGNOSTIC 1 EACH STRIP IN SCH ×4 (05:52→21:15)
--- NOTE | 2017-11-12 05:53 | NUR ---
ACCU CHECK 125: BS 125, NO INSULIN GIVEN PER SLIDING SCALE
--- NOTE | 2017-11-12 06:45 | NUR ---
RN CLOSING NOTES: PT IN BED, SLEEPING, RESPIRATION EVEN AND UNLABORED, REMAINS ON 3L NC. DENIES ANY PAIN OR DISCOMFORT AT THIS TIME, IV ACCESS REMAINS PATENT AND FLUSHING WELL, ON HL. MULTIPLE BRUISES NOTED ON ARMS DUE TO BLOOD DRAW. LEFT CW PACEMAKER NOTED. BLE OFFLOADED. VS REMAINS STABLE, NEEDS ATTENDED. WOUND DRESSING REMAINS C/D/I. SAFETY PRECAUTIONS FOR FALL REMAINS ENGAGED. CALL LIGHT IN REACH. WILL ENDORSE TO DAY RN FOR TIMBO.
--- NOTE | 2017-11-12 07:20 | NUR ---
MSRN NOTES. PT RECEIVED A&0X3, [place], AWAKE AND RESTING IN BED. PT WITH SAO2 86% AND O2 VIA NC AT 2LPM. HOB ELEVATED BY MAILING CLERK AND PT ENCOURAGED TO COUGH AND DEEP BREATHE, O2 INCREASED TO 4LPM. PT SAO2 93%. PT DENIES RESP DISTRESS OR SOB. PT DENIES PAIN. PT WITH IVC AT L WRIST INTACT AND SALINE FLUSH PATENT. PT REPORTS MINOR NAUSEA. PT BRIEFED ON TODAY'S POC AND IS WITHOUT CONCERN OR COMPLAINT.
[2017-11-12 08:00] VITALS: BP 137/74
[2017-11-12] MEDS: ENSURE ENLIVE CHOC 237 ML CAN PO SCH ×3 (08:11→17:57)
[2017-11-12] MEDS: ALLOPURINOL 100 MG TABLET PO SCH ×2 (08:12→08:21)
[2017-11-12] MEDS: HYDROGEL DRESSING 90 GM TUBE TP SCH (08:13)
[2017-11-12] MEDS: ONDANSETRON HCL/PF 4 MG/2 ML VIAL IVP PRN ×2 (08:14→16:16)
[2017-11-12] MEDS: ENOXAPARIN SODIUM 40 MG/0.4 ML DISP.SYRIN SQ SCH ×2 (08:17→08:21)
[2017-11-12 10:13] LABS: BASOPHILS % (AUTO) 0.6 % (0.0-2.0); CALCIUM, SERUM 8.9 mg/dL (8.5-10.1); CARBON DIOXIDE 26 mmol/L (21-32); CHLORIDE 104 mmol/L (98-107); CREATININE 1.1 mg/dL (0.6-1.3); EOSINOPHILS % (AUTO) 1.9 % (0.0-6.0); GLUCOSE 200 mg/dL (74-106); HEMATOCRIT 34 % (33-45); HEMOGLOBIN 11.1 g/dL (11.5-14.8); MAGNESIUM 1.5 mg/dL (1.8-2.4); MEAN CORPUSCULAR HEMOGLOBIN 27 PG (26.0-33.0); MEAN CORPUSCULAR HGB CONC 32 g/dl (31.0-36.0); MEAN CORPUSCULAR VOLUME 85 fL (82-100); MONOCYTES % (AUTO) 5.1 % (2.0-12.0); NEUTROPHILS % (AUTO) 79.4 % (43.0-81.0); PHOSPHORUS 3.5 mg/dL (2.5-4.9); PLATELET COUNT (AUTO) 228 /CMM (150-450); POTASSIUM 4.3 mmol/L (3.5-5.1); RDW COEFFICIENT OF VARIATION 15.9 (11.5-15.0); RED BLOOD CELL COUNT(AUTO) 4.06 MIL/uL (4.0-5.2); SODIUM SERUM 138 mmol/L (136-145); UREA NITROGEN, BLOOD 17 mg/dL (7-18); WHITE BLOOD COUNT (AUTO) 10.6 K/uL (4.3-11.0)
[2017-11-12] MEDS: Magnesium 1GM/D5W 100ML PREMIX 100 ML IV SCH ×3 (11:28→14:00)
[2017-11-12] MEDS: SOD FERRIC GLUC 125 MG in IV NS 0.9% 100 ML IV SCH (14:32)
[2017-11-12 16:00] VITALS: BP 106/59
--- NOTE | 2017-11-12 18:25 | NUR ---
MSRN NOTES. PT WITH O2 VIA NC AT 4LPM, SAO2 93%. PT DENIES PAIN. NAUSEA RESOLVED WITH PRN ADMIN. PT REPORTS DIFFICULTY PASSING STOOL THIS AFTERNOON. PT WITH IVC AT L WRIST INTACT AND SALINE FLUSH PATENT. PT BED IN LOWEST LOCKED POSITION WITH HANDRAILSX2 AND CALL [place] WITHIN REACH. ALL DAY NURSE DUTIES ATTENDED TO AND PT IS WITHOUT CONCERN OR COMPLAINT, WILL ENDORSE TO NIGHT NURSE AT BEDSIDE FOR TIMBO.
--- NOTE | 2017-11-12 19:05 | NUR ---
RN OPENING NOTES PT AWAKE AND RESTING IN BED. NO COMPLAINTS OF PAIN, SOB, DISTRESS AT THIS TIME. PT HAS MARIE CATHETER INTACT AND DRAINING WELL. PT HAS A LEFT WRIST IV #22 INTACT AND PATENT. PT ON 4LPM 02 AND SATING 93% SAFETY PRECAUTIONS IN PLACE, BED IN LOWEST LOCKED POSITION, X2 SIDE RAILS UP, CALL LIGHT WITHIN REACH. WILL CONTINUE TO MONITOR.
[2017-11-12 20:00] VITALS: BP 104/62
[2017-11-13] MEDS: BLOOD SUGAR DIAGNOSTIC 1 EACH STRIP IN SCH ×2 (06:30→12:07)
--- NOTE | 2017-11-13 06:45 | NUR ---
RN CLOSING NOTES PT RESTING IN BED. NO COMPLAINTS OF PAIN, SOB, DISTRESS OVERNIGHT. PT HAS MARIE CATHETER INTACT AND DRAINING WELL. PT HAS A LEFT WRIST IV #22 INTACT AND PATENT. PT ON 4LPM 02. ALL PT NEEDS MET OVERNIGHT. SAFETY PRECAUTIONS IN PLACE, BED IN LOWEST LOCKED POSITION, X3 SIDE RAILS UP, CALL LIGHT WITHIN REACH. WILL ENDORSE TO DAY SHIFT NURSE FOR CONTINUITY OF CARE.
--- NOTE | 2017-11-13 07:25 | NUR ---
RN NOTES PT RESTING IN BED. NO COMPLAINTS OF PAIN, SOB, DISTRESS OVERNIGHT. PT HAS MARIE CATHETER INTACT AND DRAINING WELL. PT HAS A LEFT WRIST IV #22 INTACT AND PATENT. PT ON 4LPM 02. SAFETY PRECAUTIONS IN PLACE, BED IN LOWEST LOCKED POSITION, X3 SIDE RAILS UP, CALL LIGHT WITHIN REACH. WILL CONTINUE TO MONITOR.
[2017-11-13 07:29] LABS: CALCIUM, SERUM 8.7 mg/dL (8.5-10.1); CARBON DIOXIDE 29 mmol/L (21-32); CHLORIDE 104 mmol/L (98-107); GLUCOSE 129 mg/dL (74-106); MAGNESIUM 1.9 mg/dL (1.8-2.4); PHOSPHORUS 4.6 mg/dL (2.5-4.9); POTASSIUM 4.4 mmol/L (3.5-5.1); SODIUM SERUM 138 mmol/L (136-145); UREA NITROGEN, BLOOD 16 mg/dL (7-18)
[2017-11-13] MEDS: ALLOPURINOL 100 MG TABLET PO SCH (08:21)
[2017-11-13 08:22] VITALS: BP 121/66
[2017-11-13] MEDS: ENSURE ENLIVE CHOC 237 ML CAN PO SCH ×2 (08:23→12:07)
[2017-11-13] MEDS: ENOXAPARIN SODIUM 40 MG/0.4 ML DISP.SYRIN SQ SCH (08:28)
[2017-11-13] MEDS: HYDROGEL DRESSING 90 GM TUBE TP SCH (08:29)
[2017-11-13] MEDS: HYDROCODONE/APAP 10/325MG 1 EA TABLET PO PRN (10:25)
[2017-11-13] MEDS: INSULIN REGULAR, HUMAN 100 UNIT/ML 3 ML VIAL SQ PRN (12:13)
[2017-11-13 16:24] VITALS: BP 120/65
--- NOTE | 2017-11-13 16:24 | NUR ---
RN NOTES PER HERMELINDO KENNEY TO DISCHARGE PATIENT TODAY. PATIENT RECEIVED DISCHARGE INSTRUCTIONS AND VERBALIZED UNDERSTANDING, SKIN ASSESSMENT COMPLETED, NO CHANGES, PHOTOS ARE TAKEN LAST NIGHT AND IN THE CHART. WOUND TREATMENT, SKIN CARE RENDERED, PAPERWORKS SIGNED BY THE PATIENT, REPORT GIVEN TO RACHNA EAST AT [facility]. NEEDS ATTENDED AND MET, CALL LIGHT WITHIN REACH, WILL WAIT FOR TRANSPORTATION.
--- NOTE | 2017-11-13 16:56 | NUR ---
MIXING AND DISPENSING SUPERVISOR BELONGINGS COMPLETE, JUST AN EYEGLASS. PIV REMOVED APPLIED GAUZE AND TAPE. PATIENT TRANSFERRED TO [facility], IN STABLE CONDITION ACCOMPANIED BY 2 STRAIGHTEDGE MAN.
== END 2017-11-13 16:56 | DRG 673 ==
LOC: ER 07:43 → TELE1 10:13 → MED 11-09 21:44
PROVIDERS: ADMIT Nurse Practitioner Acute Care; ATTEND Nurse Practitioner Acute Care
PROC: 0JB90ZZ Excision of Buttock Subcutaneous Tissue and Fascia, Open Approach (ICD-10-PCS; principal; 2017-11-10)
DX: N30.00 Acute cystitis without hematuria (principal); N17.0 Acute kidney failure with tubular necrosis; L89.323 Pressure ulcer of left buttock, stage 3; E43 Unspecified severe protein-calorie malnutrition; L89.313 Pressure ulcer of right buttock, stage 3; S22.31XA Fracture of one rib, right side, initial encounter for closed fracture; E87.1 Hypo-osmolality and hyponatremia; D68.59 Other primary thrombophilia; R62.7 Adult failure to thrive; I10 Essential (primary) hypertension; Z95.0 Presence of cardiac pacemaker; Z79.01 Long term (current) use of anticoagulants; Z85.3 Personal history of malignant neoplasm of breast; Z90.11 Acquired absence of right breast and nipple; Z88.0 Allergy status to penicillin; E11.9 Type 2 diabetes mellitus without complications; Z79.899 Other long term (current) drug therapy; Z79.84 Long term (current) use of oral hypoglycemic drugs; E86.1 Hypovolemia; I48.91 Unspecified atrial fibrillation; M10.9 Gout, unspecified; M19.90 Unspecified osteoarthritis, unspecified site; E83.42 Hypomagnesemia; Z73.6 Limitation of activities due to disability; E83.39 Other disorders of phosphorus metabolism; E78.5 Hyperlipidemia, unspecified; E87.6 Hypokalemia; W19.XXXA Unspecified fall, initial encounter; Z91.81 History of falling; Y92.129 Unspecified place in nursing home as the place of occurrence of the external cause; R54 Age-related physical debility; E83.51 Hypocalcemia
CPT/HCPCS: 36415; 70450-TC; 71045-TC; 73030-TC; 80048-TC; 80053-TC; 80061-TC; 80076-TC; 81000-TC; 82272-TC; 82306; 82728-TC; 82962-TC; 83540-TC; 83605-TC; 83735-TC; 84100-TC; 84439-TC; 84443-TC; 84484-TC; 85025-TC; 85730-TC; 87040-TC; 87081-TC; 87086-TC; 93307-TC; 97110-TC; 97116-TC; 97530-TC; A4216; A4606; A6248; A6253; A6402; A6403; J1650; J1815; J1956; J2405; J2916; J3475; J3490; J7030; J7040; J7050; Z7610